=== PATIENT | female | born 1935 | race Caucasian/White ===

== ENCOUNTER 2016-12-19 15:33 | Inpatient (IN) ==
--- NOTE | 2016-12-19 15:59 | Emergency Department Note ---
Disposition Clinical Impression: Arterial occlusion, Afib Disposition: Admitted As Inpatient Condition: Fair General Adult HPI - General Chief complaint: ED Extremity Problem,Nontraumatic Stated complaint: right leg pain Time Seen by Provider: 12/19/16 15:55 Source: patient, family Limitations: no limitations - History of Present Illness Pain Scale: 10 - Related Data Home Medications Medication Instructions Recorded Confirmed Donepezil [Aricept] 10 mg PO HS 05/22/15 09/27/15 Metoprolol Tartrate [Lopressor] 100 mg PO QAM 05/22/15 09/27/15 Namenda 1 tab PO HS 05/22/15 09/27/15 Ranitidine HCl [Zantac] 150 mg PO QAM 05/22/15 09/27/15 Simvastatin [Zocor] 80 mg PO HS 05/22/15 09/27/15 amLODIPine [Norvasc] 10 mg PO DAILY 05/22/15 09/27/15 Aspirin [Lo-Dose Aspirin EC] 81 mg PO 09/27/15 Megestrol Acetate [Megace] 40 mg PO DAILY 09/27/15 09/27/15 Allergies Allergy/AdvReac Type Severity Reaction Status Date / Time No Known Allergies Allergy Verified 09/27/15 11:51 Past Medical History - Past Medical History Medical history: Reports: arthritis, atrial fibrillation, dementia, diabetes, GERD, hyperlipidemia, hypertension, osteoporosis, valvular heart disease, other Surgical history: Reports: carotid endarterectomy, other Psychiatric history: Reports: no psych history MANAGER CONFIGURATION history: Reports: no MANAGER CONFIGURATION history - Social History Smoking Status: Former smoker Smokeless Tobacco Status: No Alcohol use: Reports: none Drug use: Reports: none Physical Exam - General Limitations: no limitations General appearance: alert, in no apparent distress Course Vital Signs Temperature 97.4 F L 12/19/16 15:40 Pulse Rate 78 12/19/16 15:40 Respiratory Rate 16 12/19/16 15:40 Blood Pressure 139/89 12/19/16 15:40 O2 Sat by Pulse Oximetry 0 12/19/16 15:40 Temperature 97.4 F L 12/19/16 15:40 Pulse Rate 99 12/19/16 21:14 Respiratory Rate 18 12/19/16 21:14 Blood Pressure 160/82 12/19/16 21:14 O2 Sat by Pulse Oximetry 98 12/19/16 21:14 Oxygen Delivery Oxygen Delivery Room Air Medical Decision Making - Lab Data Result diagrams: 12/19/16 20:00 12/19/16 18:49 Lab Results 12/19/16 12/19/16 12/19/16 Range/Units 18:49 18:49 18:49 WBC 7.2 (4.3-11.1) K/mcL RBC 4.42 (3.82-4.97) M/mcL Hgb 12.7 (11.5-15.4) g/dL Hct 39.5 (35.3-44.9) % MCV 89.4 (83.0-100.0) fL MCH 28.7 (28.0-33.3) pg MCHC 32.2 (31.6-35.5) g/dL RDW 14.9 H (11.5-14.5) % Plt Count 145 (140-400) K/mcL MPV 11.4 (9.4-12.4) fL Immature Gran % (0-4) % Seg Neutrophils % % Lymphocytes % % Monocytes % % Eosinophils % % Basophils % % Neutrophils # (1.6-8.9) K/mcL Lymphocytes # (0.6-4.6) K/mcL Monocytes # (0.0-1.3) K/mcL Eosinophils # (0.0-0.6) K/mcL Basophils # (0.0-0.2) K/mcL Immature Plt Fraction 7.2 H (1.1-6.1) % PT 12.4 H (9.4-12.1) Seconds INR 1.1 APTT 27.1 (26.0-36.0) Seconds Sodium 138 (136-145) mEq/L Potassium 5.7 H (3.5-4.5) mEq/L Chloride 108 (98-109) mEq/L Carbon Dioxide 20 (19-29) mEq/L BUN 44 H (7-20) mg/dL Creatinine 1.17 H (0.57-1.11) mg/dL Est GFR ( Amer) 54 L (> 60) Est GFR (Non-Af Amer) 44 L (> 60) BUN/Creatinine Ratio 38 H (6-26) Glucose 111 H (70-99) mg/dL Calculated Osmolality 298 (280-300) Calcium 10.1 (8.6-10.8) mg/dL 12/19/16 12/19/16 Range/Units 20:00 20:00 WBC 7.5 (4.3-11.1) K/mcL RBC 4.39 (3.82-4.97) M/mcL Hgb 12.4 (11.5-15.4) g/dL Hct 39.3 (35.3-44.9) % MCV 89.5 (83.0-100.0) fL MCH 28.2 (28.0-33.3) pg MCHC 31.6 (31.6-35.5) g/dL RDW 15.0 H (11.5-14.5) % Plt Count 142 (140-400) K/mcL MPV 11.9 (9.4-12.4) fL Immature Gran % 0.3 (0-4) % Seg Neutrophils % 78.8 % Lymphocytes % 13.9 % Monocytes % 6.0 % Eosinophils % 0.5 % Basophils % 0.5 % Neutrophils # 5.9 (1.6-8.9) K/mcL Lymphocytes # 1.1 (0.6-4.6) K/mcL Monocytes # 0.5 (0.0-1.3) K/mcL Eosinophils # 0.0 (0.0-0.6) K/mcL Basophils # 0.0 (0.0-0.2) K/mcL Immature Plt Fraction 7.6 H (1.1-6.1) % PT 12.5 H (9.4-12.1) Seconds INR 1.2 APTT 26.8 (26.0-36.0) Seconds Sodium (136-145) mEq/L Potassium (3.5-4.5) mEq/L Chloride (98-109) mEq/L Carbon Dioxide (19-29) mEq/L BUN (7-20) mg/dL Creatinine (0.57-1.11) mg/dL Est GFR ( Amer) (> 60) Est GFR (Non-Af Amer) (> 60) BUN/Creatinine Ratio (6-26) Glucose (70-99) mg/dL Calculated Osmolality (280-300) Calcium (8.6-10.8) mg/dL Critical Care Time Critical Care Time: Yes Total Critical Care Time: 30 Attestation: Right lower extremity pain requiring ankle brachial index, vascular surgery consult, IV heparin Attestation Statement - Attestation Attestation: I examined this patient and my medical decision-making was reviewed with the Resident Physician. I agree with the documented findings, disposition and treatment plan as described except to the extent set forth below. [id number] time provided Atraumatic right lower extremity pain extending from the knee distally. Patient exquisitely tender with palpation of her calf, especially over prominent varicose veins. No asymmetric swelling identified. The right lower extremity is cooler to the touch than the unaffected extremity. No systemic symptoms. 18:27: Right lower extremity arterial waveform unable to be identified. The patient did not tolerate the procedure well due to pain. We cannot calculate an CALLY. We contacted the vascular surgeon power generation technician. We will discuss with him the need for anticoagulation given her previous GI bleed while taking Xarelto
--- NOTE | 2016-12-19 16:05 | Emergency Department Note ---
Disposition Clinical Impression: Arterial occlusion Afib Qualifiers: Atrial fibrillation type: chronic Qualified Code(s): I48.2 - Chronic atrial fibrillation Disposition: Admitted As Inpatient Condition: Fair Referrals: Cheryl Adorno MD [Primary Care Provider] - Forms: ED Satisfaction Letter Time of Disposition: 19:59 General Adult HPI - General Chief complaint: ED Extremity Problem,Nontraumatic Stated complaint: right leg pain Time Seen by Provider: 12/19/16 15:55 Source: patient, family Mode of arrival: ambulatory Limitations: no limitations Nursing Notes Reviewed: Yes Vital Signs Reviewed: Yes - History of Present Illness HPI Narrative: 81-year-old female with significant past medical history of dementia and varicose veins presenting to the emergency department with right lower extremity pain. According to daughter in the room this started approximately 3 days ago. It has acutely gotten worse. Patient has severe pain on the posterior calf. Patient states possible history of A. fib and previously on Xarelto but had a GI bleed and therefore no longer on anticoagulation. Patient denies any chest pain, shortness of breath. Patient is a poor historian and daughter in the room so she is unsure of all the patient's medical issues. Patient denies any recent long trips but does state she sits around a lot. Patient denies being on any hormonal medications. Patient denies any history of DVT. Pain Scale: 10 - Related Data Home Medications Medication Instructions Recorded Confirmed Donepezil [Aricept] 10 mg PO HS 05/22/15 09/27/15 Metoprolol Tartrate [Lopressor] 100 mg PO QAM 05/22/15 09/27/15 Namenda 1 tab PO HS 05/22/15 09/27/15 Ranitidine HCl [Zantac] 150 mg PO QAM 05/22/15 09/27/15 Simvastatin [Zocor] 80 mg PO HS 05/22/15 09/27/15 amLODIPine [Norvasc] 10 mg PO DAILY 05/22/15 09/27/15 Aspirin [Lo-Dose Aspirin EC] 81 mg PO 09/27/15 Megestrol Acetate [Megace] 40 mg PO DAILY 09/27/15 09/27/15 Allergies Allergy/AdvReac Type Severity Reaction Status Date / Time No Known Allergies Allergy Verified 09/27/15 11:51 All systems ED: reviewed and negative except as stated. Constitutional: Denies: fever, chills Eyes: Reports: as per HPI ENT ED: Reports: as per HPI Cardiovascular: Denies: chest pain, palpitations, dyspnea on exertion Respiratory: Denies: cough, dyspnea, wheezes Gastrointestinal: Denies: abdominal pain, nausea, vomiting Genitourinary: Reports: as per HPI Musculoskeletal: Reports: as per HPI Integumentary: Denies: rash, abrasion Neurological: Denies: numbness, paresthesias Psychiatric: Reports: as per HPI Endocrine: Reports: as per HPI Hematological/Lymphatic: Reports: as per HPI Allergic/Immunologic: Reports: as per HPI Past Medical History - Past Medical History Attestation: Yes The following information was validated with the patient. Medical history: Reports: arthritis, atrial fibrillation, dementia, diabetes, GERD, hyperlipidemia, hypertension, osteoporosis, valvular heart disease, other Surgical history: Reports: carotid endarterectomy, other Psychiatric history: Reports: no psych history DIRECTOR OF AVIATION history: Reports: no DIRECTOR OF AVIATION history - Social History Smoking Status: Former smoker Smokeless Tobacco Status: No Alcohol use: Reports: none Drug use: Reports: none Physical Exam - General Limitations: no limitations General appearance: alert, in no apparent distress - Head Head exam: atraumatic, normocephalic, normal inspection - Eye Eye exam: Present: normal appearance. Absent: scleral icterus, conjunctival injection - Chest Chest inspection: Present: normal inspection, symmetric chest wall rise. Absent : tenderness, rash - Respiratory Respiratory exam: Present: normal lung sounds bilaterally. Absent: respiratory distress, wheezes - Cardiovascular Cardiovascular exam: Present: regular rate, normal rhythm, normal heart sounds - Abdominal Exam Abdominal exam: Present: soft, Non-Tender. Absent: distention, guarding, rebound - Extremities Exam Extremities exam: Present: other (Right lower extremity from ankle to foot decreased capillary refill greater than 3 seconds and cold. Distal pulses 1+. Left lower extremity distal pulses 2+. Patient has a palpable cord in the right posterior calf area. Pain upon palpation of the right posterior calf. Muscle strength 5 out of 5. Sensation intact bilateral lower extremities.) - Neurological Exam Neurological exam: Present: alert, oriented X3 - Psychiatric Psychiatric exam: Present: normal affect, normal mood - Skin Skin exam: Present: intact Course Course Narrative: 81-year-old female presenting to emergency Department with right lower extremity pain in the posterior calf and cold decreased pulses on the right lower extremity. We will obtain a Doppler study of the right lower extremity and an ABIs of the lower extremities. Disposition pending results. He also obtained EKG due to the patient's history of A. fib. Oriented 3 in the room and stable vital signs at this time. Patient and family agree with this plan. Daughter is at bedside. - Reevaluation(s) Reevaluation #1: Patient's Doppler within normal limits. CALLY showed no pulses in the DP or PT. Mixer Foam Rubber states patient had significant pain during the examination and that this could possibly cause difficulty in results. I spoke with the vascular surgeon paint grinder stone mill Dr. Winters who agrees to come to the emergency department and evaluate the patient. He would like us to start a heparin drip at this time. I spoke with the patient about this and they agree with the plan along with daughter at bedside. Patient denies any active melena or hematochezia. Denies any hematuria or any other signs of active bleeding at this time. We will start heparin and obtain basic lab work for admission and possible surgery. Time: 19:27 Reevaluation #2: Dr. Winters has come to the emergency department and evaluate the patient. He would like her to be admitted to his service for surgery and possible limb removal. Patient's alert and oriented 3 in the room with daughter at bedside. Vital signs are stable at this time. Time: 19:59 Vital Signs Temperature 97.4 F L 12/19/16 15:40 Pulse Rate 78 12/19/16 15:40 Respiratory Rate 16 12/19/16 15:40 Blood Pressure 139/89 12/19/16 15:40 O2 Sat by Pulse Oximetry 0 12/19/16 15:40 Temperature 97.4 F L 12/19/16 15:40 Pulse Rate 78 12/19/16 15:40 Respiratory Rate 16 12/19/16 15:40 Blood Pressure 139/89 12/19/16 15:40 O2 Sat by Pulse Oximetry 0 12/19/16 15:40 Oxygen Delivery Oxygen Delivery Room Air Medical Decision Making - Lab Data Result diagrams: 12/19/16 18:49 12/19/16 18:49 Lab Results 12/19/16 12/19/16 12/19/16 Range/Units 18:49 18:49 18:49 WBC 7.2 (4.3-11.1) K/mcL RBC 4.42 (3.82-4.97) M/mcL Hgb 12.7 (11.5-15.4) g/dL Hct 39.5 (35.3-44.9) % MCV 89.4 (83.0-100.0) fL MCH 28.7 (28.0-33.3) pg MCHC 32.2 (31.6-35.5) g/dL RDW 14.9 H (11.5-14.5) % Plt Count 145 (140-400) K/mcL MPV 11.4 (9.4-12.4) fL Immature Plt Fraction 7.2 H (1.1-6.1) % PT 12.4 H (9.4-12.1) Seconds INR 1.1 APTT 27.1 (26.0-36.0) Seconds Sodium 138 (136-145) mEq/L Potassium 5.7 H (3.5-4.5) mEq/L Chloride 108 (98-109) mEq/L Carbon Dioxide 20 (19-29) mEq/L BUN 44 H (7-20) mg/dL Creatinine 1.17 H (0.57-1.11) mg/dL Est GFR ( Amer) 54 L (> 60) Est GFR (Non-Af Amer) 44 L (> 60) BUN/Creatinine Ratio 38 H (6-26) Glucose 111 H (70-99) mg/dL Calculated Osmolality 298 (280-300) Calcium 10.1 (8.6-10.8) mg/dL - EKG Data EKG #1 EKG attestation: Yes I reviewed and interpreted this EKG. EKG results narrative: Atrial fibrillation rate of 71. Left axis deviation. QRS 98, QTC 392. No signs of ST segment elevation or ischemia. When compared to previous EKG completed on 05/22/2015 no significant changes
[2016-12-19] MEDS ORDERED: *HR* Heparin 5,000 UNIT/ML VIAL IVP PRN (18:33)
[2016-12-19] MEDS ORDERED: Heparin 25,000 UNIT/500 ML D5W 25,000 UNIT/500 ML MLS IVC SCH (18:45)
[2016-12-19 18:56] LABS: Hematocrit 39.5 % (35.3-44.9); Hemoglobin 12.7 g/dL (11.5-15.4); Immature Platelets 7.2 % (1.1-6.1); Mean Corpuscular HGB Conc 32.2 g/dL (31.6-35.5); Mean Corpuscular Hemoglobin 28.7 pg (28.0-33.3); Mean Corpuscular Volume 89.4 fL (83.0-100.0); Mean Platelet Volume 11.4 fL (9.4-12.4); Red Blood Count 4.42 M/mcL (3.82-4.97); Red Cell Distribution Width 14.9 % (11.5-14.5)
[2016-12-19 19:07] LABS: Calcium 10.1 mg/dL (8.6-10.8); INR 1.1; Potassium 5.7 mEq/L (3.5-4.5); Prothrombin Time 12.4 Seconds (9.4-12.1)
[2016-12-19 19:09] LABS: Activated Partial Thrombo Time 27.1 Seconds (26.0-36.0)
[2016-12-19 20:15] LABS: Basophils % 0.5 %; Eosinophils % 0.5 %; Hematocrit 39.3 % (35.3-44.9); Hemoglobin 12.4 g/dL (11.5-15.4); Immature Granulocytes % 0.3 % (0-4); Immature Platelets 7.6 % (1.1-6.1); Lymphocytes # 1.1 K/mcL (0.6-4.6); Lymphocytes % 13.9 %; Mean Corpuscular HGB Conc 31.6 g/dL (31.6-35.5); Mean Corpuscular Hemoglobin 28.2 pg (28.0-33.3); Mean Corpuscular Volume 89.5 fL (83.0-100.0); Mean Platelet Volume 11.9 fL (9.4-12.4); Monocytes # 0.5 K/mcL (0.0-1.3); Neutrophils # 5.9 K/mcL (1.6-8.9); Platelet Count 142 K/mcL (140-400); Red Blood Count 4.39 M/mcL (3.82-4.97); Segmented Neutrophils % 78.8 %
[2016-12-19 20:20] LABS: INR 1.2; Prothrombin Time 12.5 Seconds (9.4-12.1)
[2016-12-19 20:36] LABS: Activated Partial Thrombo Time 26.8 Seconds (26.0-36.0)
--- NOTE | 2016-12-19 20:49 | Anesthesia Evaluation PreOp ---
Date of Encounter: 12/19/16 Time of Encounter: 20:47 - Past History Planned Operation: Right LE embolectomy Cardiac History: Denies any Significant Hx (arthritis, atrial fibrillation, dementia, diabetes, GERD, hyperlipidemia, hypertension, osteoporosis, valvular heart disease, other), HTN, Hyperlipidemia, Arrhythmia (Afib), Other (Valvular heart dx) Pulmonary History: Former smoker YEAST FERMENTATION ATTENDANT History: Denies Any Significant HX Other Medical History: Denies Any Significant HX, Diabetes Type II, GERD, Other (Dementia, RA, osteoporosis) Anesthesia History: No Prior Anesthetic Complications, Past Anesthesia (CEA) : No Alcohol Use: none Drug use: none Medications and Allergies Donepezil [Aricept] 10 mg PO HS 05/22/15 [History] Metoprolol Tartrate [Lopressor] 100 mg PO QAM 05/22/15 [History] Namenda 1 tab PO HS 05/22/15 [History] Ranitidine HCl [Zantac] 150 mg PO QAM 05/22/15 [History] Simvastatin [Zocor] 80 mg PO HS 05/22/15 [History] amLODIPine [Norvasc] 10 mg PO DAILY 05/22/15 [History] Aspirin [Lo-Dose Aspirin EC] 81 mg PO 09/27/15 [History] Megestrol Acetate [Megace] 40 mg PO DAILY 09/27/15 [History] 3 Allergy/AdvReac Type Severity Reaction Status Date / Time No Known Allergies Allergy Verified 09/27/15 11:51 - Meds/Allergy Pre-op Review Medications Reviewed: Yes Allergies Reviewed: Yes Beta Blockers on Current Med List: Yes If Beta Blockers taken, Date/Time (Last Dose taken): 11:00 12/19/2016 Anesthesia Results - Labs 12/19/16 20:00 12/19/16 18:49 - Imaging EKG: image reviewed (ATRIAL FIBRILLATION WITH SLOW VENTRICULAR RESPONSE) Anesthesia Exam O2 Sat Height 1.6 m Weight 68.039 kg O2 Sat by Pulse Oximetry 99 O2 Sat by Pulse Oximetry 98 O2 Sat by Pulse Oximetry 0 Vital Signs Temp Pulse Resp BP Pulse Ox 97.4 F L 78 16 139/89 0 12/19/16 15:40 12/19/16 15:40 12/19/16 15:40 12/19/16 15:40 12/19/16 15:40 Height: 5'3'' Weight: 150# NPO (# of Hours): > 8 hrs Pain Scale: 0 - HEENT Pupil (Motor): Pupils equal, EOMI Mallampati: III Teeth: Edentulous Oral Opening: Greater than 3 - YEAST FERMENTATION ATTENDANT LOC: Oriented YEAST FERMENTATION ATTENDANT Motor: Normal RUE, Normal LUE, Normal RLE, Normal LLE, Normal Face YEAST FERMENTATION ATTENDANT Sensory: Normal: RUE, LUE, RLE, LLE, Face - Cardiac Rhythm: Irregular Murmur: None JVD: No Carotid Bruit: No - Pulmonary Breath Sounds: bilateral Clear Respiratory Effort: Symmetrical Anesthesia Assess/Plan ASA Score: 3 Modified [place] Scale for Level of Consciousness: Cooperative, oriented, and tranquil Anesthetic Plan: General Autologous Blood: Yes Monitoring Plan: Standard Monitors Recovery Plan: PACU
[2016-12-19] MEDS ORDERED: Heparin 1,000 UNITS/500 mL NS 500 ML ONE (20:52)
[2016-12-19] MEDS ORDERED: Lidocaine 1% 20 ML MDV ONE (20:52)
[2016-12-19] MEDS ORDERED: *HR* FentaNYL (PF) 100 MCG/2 ML VIAL ONE (21:06)
[2016-12-19] MEDS ORDERED: *HR* Propofol 200 MG/20 ML VIAL IVP ONE (21:08)
[2016-12-19] MEDS ORDERED: Lidocaine -MPF 2% 2 ML VIAL ONE (21:09)
[2016-12-19] MEDS ORDERED: Dexamethasone 4 MG/ML VIAL ONE (21:09)
[2016-12-19] MEDS ORDERED: *HR* Rocuronium Bromide 50 MG/5 ML VIAL ONE (21:09)
[2016-12-19] MEDS ORDERED: Ondansetron 4 MG/2 ML VIAL ONE (21:09)
[2016-12-19] MEDS ORDERED: *HR* Succinylcholine 200 MG/10 ML VIAL IVP ONE (21:09)
--- NOTE | 2016-12-19 21:11 | Vascular/Endovascular H&P ---
Date of Encounter: 12/19/16 Time of Encounter: 20:00 Assessment and Plan (1) Ischemia of right lower extremity Current Visit: Yes Status: Acute The patient has evidence of acute right lower extremity ischemia likely secondary to an embolic event arising from her atrial fibrilllation. The patient has a diminshed pulse exam, her ABIs are critical and her right lower extremity exam reveals decreased motor and sensory function due to her ischemia of 3 days duration. Emergent revascularization is recommended to reduce her risk of limb loss. Given her delayed presentation, limb loss is possible. This was discussed with her and her daughter. They expressed understanding and wish to proceed with surgery. The risks, benefits and alternatives were discussed and all questions were answered. (2) Essential hypertension Current Visit: Yes Status: Chronic (3) Mixed hyperlipidemia Current Visit: Yes Status: Chronic (4) DM type 2 (diabetes mellitus, type 2) Current Visit: Yes Status: Chronic Qualifiers: Diabetes mellitus complication status: with unspecified complications Diabetes mellitus continuous churn buttermaker insulin use: without snf use Qualified Code( s): E11.8 - Type 2 diabetes mellitus with unspecified complications (5) Afib Current Visit: Yes Status: Chronic Qualifiers: Atrial fibrillation type: chronic Qualified Code(s): I48.2 - Chronic atrial fibrillation (6) Chronic kidney disease, stage III (moderate) Current Visit: Yes Status: Chronic History of Present Illness Chief complaint: Right foot pain HPI: Ms. Pantoja is a 81 year old female with a history of atrial fibrillation. She was previously treated with Xarelto, but due to presistent anemia, her Xarelto has been stopped. The patient describes a 3 day history of pain and parasthesias of the right foot. She has presented to [facility] ER today for further evaluation. As part of her evaluation she underwent an ankle brachial index. Her right CALLY was consistent with critical limb ischemia. Vascular Surgery was consulted for further evaluation. The patient is alert and denies chest pain or shortness of breath. Past Med Surg Social Fam HX - Past Medical History Medical history: arthritis, atrial fibrillation, dementia, diabetes, GERD, hyperlipidemia, hypertension, osteoporosis, valvular heart disease, other Psychiatric history: no psych history - Past Surgical History Surgical History: carotid endarterectomy, other - Social History Smoking Status: Former smoker Smokeless Tobacco Status: No Alcohol use: none Drug use: none Medications and Allergies Donepezil [Aricept] 10 mg PO HS 05/22/15 [History] Metoprolol Tartrate [Lopressor] 100 mg PO HS 05/22/15 [History] Ranitidine HCl [Zantac] 150 mg PO QAM 05/22/15 [History] Simvastatin [Zocor] 80 mg PO HS 05/22/15 [History] Aspirin [Lo-Dose Aspirin EC] 81 mg PO HS 09/27/15 [History] Furosemide [Lasix] 40 mg PO DAILY 12/20/16 [History] Lisinopril [Zestril] 20 mg PO DAILY 12/20/16 [History] Megestrol Acetate [Megace] 400 mg PO DAILY 12/20/16 [History] Memantine [Namenda] 10 mg PO BID 12/20/16 [History] Raloxifene [Evista] 60 mg PO HS 12/20/16 [History] 3 Allergy/AdvReac Type Severity Reaction Status Date / Time No Known Allergies Allergy Verified 09/27/15 11:51 All Systems Review: A 10-system review of systems was performed and is negative for pertinent findings except as documented above in the HPI. - Constitutional Constitutional: no chills, no fever(s) - Cardiovascular Cardiovascular: no chest pain at rest, no chest pain with exertion, no dyspnea at rest, no dyspnea on exertion Exam Vital Signs, Last 4 Hours Pulse Resp BP Pulse Ox 12/19/16 20:31 90 16 146/82 99 General: Present: Conversant, No Apparent Distress HEENT: Present: Atraumatic, Normocephaly, Trachea midline, Pupils equal Neck: Absent: JVD, Lymphadenopathy, Left Carotid bruit, Right Carotid bruit Cardiac: Present: Normal S1 and S2, Irregular Rhythm Lungs: Present: Normal Breath Sounds, No Wheeze, Rales, Rhonchi Neuro: Present: Alert and responsive, Other (right foot decreased motor function and decreased sensation to light touch) Abdomen: Present: Soft, Non-tender Vascular: Present: Normal capillary refill (left foot), Capillary refill delayed (right forefoot), Pulse, absent (right foot), Pulse, diminished (left foot), Pulse, normal (bilateral femoral pulses normal), Cyanosis (right forefoot mottling present). Absent: Edema Skin: Present: No rashes noted on visualized skin Musculoskeletal: Present: No Chest Wall Tenderness Results 12/20/16 03:52 12/20/16 03:52 - Imaging / Other Tests Non Invasive Vascular Testing: report reviewed, image reviewed
[2016-12-19] MEDS ORDERED: Albuterol 2.5 MG/3 ML NEBULIZER IH ONE (21:40)
[2016-12-19] MEDS ORDERED: *HR* Labetalol 20 MG/4 ML SYRINGE IVP PRN (21:40)
[2016-12-19] MEDS ORDERED: Ondansetron 4 MG/2 ML VIAL IVP ONE (21:40)
[2016-12-19] MEDS ORDERED: *HR* Promethazine 25 MG/ML VIAL IVP PRN (21:40)
[2016-12-19] MEDS ORDERED: *HR* HYDROmorphone (PF) 1 MG/ML SYRINGE IVP PRN (21:40)
--- NOTE | 2016-12-19 21:42 | Anesthesia Evaluation Post Op ---
Date of Encounter: 12/20/16 Time of Encounter: 00:40 - Vital Signs Vital Signs: Vital Signs/O2 Sat, Most Current Temp Pulse Resp BP Pulse Ox 98.9 F 98 20 128/87 96 12/20/16 00:39 12/20/16 00:39 12/20/16 00:39 12/20/16 00:39 12/20/16 00:39 - Lungs Lungs: Clear Ascult./Percussion - Cardiovascular Irregular Rate, Baseline Rhythm - Mental Status Mental Status: Alert & Oriented, Answers Appropriately - Pain Pain Scale: 0 Pain Scale used: Numeric (1 - 10) - Nausea Vomiting Nausea Vomiting: Not Present - Hydration Hydration: NPO, Mac catheter - Discharge PostOp Status: Transfer Patient to floor
[2016-12-19] MEDS ORDERED: Vancomycin 1,000 MG VIAL ONE (22:04)
[2016-12-19] MEDS ORDERED: ceFAZolin 2,000 MG in Water for inj. (sterile) 20 ML IVP ONE (22:22)
[2016-12-19] MEDS ORDERED: Vancomycin 1,000 MG in Sodium Chloride IRRigation 250 ML IR ONE (22:23)
[2016-12-19] MEDS ORDERED: *HR* Heparin 5,000 UNIT/ML VIAL ONE (22:53)
[2016-12-20] MEDS ORDERED: Naloxone 0.4 MG/ML INJ IVP PRN (00:59)
[2016-12-20] MEDS ORDERED: *HR* Morphine 2 MG/ML SYRINGE IVP PRN (00:59)
[2016-12-20] MEDS ORDERED: *HR* Labetalol 20 MG/4 ML SYRINGE IVP PRN (00:59)
[2016-12-20] MEDS ORDERED: Acetaminophen 325 MG TABLET PO PRN (00:59)
[2016-12-20] MEDS ORDERED: Ondansetron 4 MG/2 ML VIAL IVP PRN (00:59)
[2016-12-20] MEDS: *HR* OxyCODONE Immed Rel 5 MG TABLET PO PRN ×2 (01:36→15:12)
[2016-12-20] MEDS: 0.9 % Sodium Chloride 1,000 ML IVC SCH ×2 (01:38→18:28)
[2016-12-20] MEDS: *HR* Metoprolol 5 MG/5 ML VIAL IVP SCH ×4 (01:38→18:29)
--- NOTE | 2016-12-20 03:08 | Operative Note ---
Date of procedure: 12/20/16 Pre-op diagnosis: Acute right lower extremity ischemia Post-op diagnosis: same Procedure: 1. Right lower extremity embolectomy with 4 polish tadeo embolectomy catheter. 2. Exploration of right tibial vessels and 2 compartment fasciotomy. Complications: None Anesthesia: GETA Surgeon: Kaz Winters Estimated blood loss (cc): 100 Specimen: Right lower extremity embolus Condition: stable Disposition: PACU Procedure in Detail: Indications: The patient is an 81 year old female with a history of chronic atrial fibrillation, hypertension and hyperlipidemia who was not anticoagulated. She presented to the ER with acute limb ischemia. She was taken to the OR emergently for revascularization to reduce her risk of limb loss. Procedure: The patient was identified in the preoperative area. The risks, benefits and alternatives were discussed and all questions were answered. The patient was taken to the operating room and placed in the supine position on the operating room table. After the induction of general endotracheal anesthesia, the patient was cleaned and draped in the normal sterile fashion. An oblique incision was made over the right femoral vessels sharply. Hemostasis was obtained with electrocautery. Through a process of blunt, sharp and electrocautery dissection, the distal external iliac, deep and superficial femoral arteries were dissected and surrounded with vessel loops. The patient received a bolus of heparin and the vessels were occluded with the vessel loops. A transverse arteriotomy was made low on the common femoral artery. No flow was noted on releas of the proximal loop. A 4 polish tadeo catheter was passed into the aorta and inflated. It was withdrawn and significant acute thrombus and chronic embolic material was retrieved. This was sent to pathology. Brisk pulsatile flow was noted at this time. Additional passes of the catheter resulted in no additional thrombus or embolus proximally. A 4 polish tadeo catheter was passed distally and thrombus was retrieved from the deep femoral artery. Multiple additional passes revealed no additional thrombus from the deep femoral artery. The right superficial femoral artery was noted to be chronically occluded and the tadeo catheter would not advance more thean 1cm into the vessel. The vessels were flushed with heparin. The arteriotomy was reapproximated with 6-0 Prolene. Flow was restored. A popliteal signal was identified with a doppler. However, no tibial signals could be identified. A longitudinal incision was then made along the medial right leg sharply. Hemostasis was obtained via electrocautery. Through a process of blunt, sharp and electrocautery dissection, the popliteal, anterior tibial and tibioperoneal trunk arteries were dissected. A doppler revealed biphasic signals in the tibial vessels. A fasciotomy was performed on the superfical and deep posterior compartments. The wounds wer irrigated with sterile saline. Signals wer not identified at the ankle posterior tibial and dorsalis pedis arteries below the ankle. Hemostasis was obtained with electrocautery. The wounds were reapproximated with 2-0 and 3-0 vicryl. Skin was reapproximated with 3-0 Monocryl. Sterile dressings were applied. The patient was extubated and taken to the recover room in stable condition.
[2016-12-20] MEDS: CeFAZolin Premix DUPLEX 2,000 MG/50 ML BAG IVPB SCH ×2 (03:25→12:14)
[2016-12-20 04:34] LABS: Basophils % 0.1 %; Eosinophils % 0.1 %; Hematocrit 37.5 % (35.3-44.9); Hemoglobin 11.7 g/dL (11.5-15.4); Immature Granulocytes % 0.5 % (0-4); Lymphocytes # 0.5 K/mcL (0.6-4.6); Lymphocytes % 6.5 %; Mean Corpuscular HGB Conc 31.2 g/dL (31.6-35.5); Mean Corpuscular Hemoglobin 28.1 pg (28.0-33.3); Mean Corpuscular Volume 90.1 fL (83.0-100.0); Mean Platelet Volume 12.1 fL (9.4-12.4); Monocytes # 0.2 K/mcL (0.0-1.3); Monocytes % 2.6 %; Neutrophils # 7.5 K/mcL (1.6-8.9); Platelet Count 144 K/mcL (140-400); Red Blood Count 4.16 M/mcL (3.82-4.97); Red Cell Distribution Width 15.2 % (11.5-14.5); Segmented Neutrophils % 90.2 %
[2016-12-20 04:52] LABS: Calcium 9.1 mg/dL (8.6-10.8); Potassium 5.1 mEq/L (3.5-4.5)
[2016-12-20] MEDS: Furosemide 40 MG TABLET PO SCH (09:09)
[2016-12-20] MEDS: Lisinopril 20 MG TABLET PO SCH (09:09)
[2016-12-20] MEDS: Famotidine 20 MG TABLET PO SCH (09:09)
[2016-12-20] MEDS: *HR* Enoxaparin 80 MG/0.8 ML SYRINGE SQ SCH (18:29)
[2016-12-20] MEDS ORDERED: Aspirin Enteric Coated 81 MG Tablet PO SCH (21:00)
[2016-12-20] MEDS: *HR* HYDROcodone/Acet 5/325 mg TABLET PO PRN (21:31)
--- NOTE | 2016-12-20 23:14 | Vascular/[facility] Progress Note ---
Date of Encounter: 12/20/16 Time of Encounter: 13:30 - Assessment and plan (1) Ischemia of right lower extremity Status: Acute The patient presented with 3 days of acute right lower extremity ischemia lsecondary to an embolic event arising from her atrial fibrillation. She underwent a right lower extremity embolectomy and a right lower extremity fasciotomy. Her foot is warm and her symptoms have resolved. She will continue Lovenox today. Her echo reveals no evidence of a mural thrombus. (2) Essential hypertension Status: Chronic (3) Mixed hyperlipidemia Status: Chronic (4) DM type 2 (diabetes mellitus, type 2) Status: Chronic Qualifiers: Diabetes mellitus complication status: with circulatory complication Diabetes mellitus complication detail: with peripheral angiopathy without gangrene Diabetes mellitus chcf insulin use: without long term care social worker use Qualified Code(s): E11.51 - Type 2 diabetes mellitus with diabetic peripheral angiopathy without gangrene (5) Afib Status: Chronic Qualifiers: Atrial fibrillation type: chronic Qualified Code(s): I48.2 - Chronic atrial fibrillation (6) Chronic kidney disease, stage III (moderate) Status: Chronic Continue intravenous hydration. - Subjective Interval history: The patient reports that her right leg is feeling much better today. She reports incisional pain. She denies any palpitations. She denies chest pain or shortness of breath. Vital Signs, Last 4 Hours Temp Pulse Resp BP Pulse Ox 12/20/16 20:11 97.6 F 98 16 97/49 97 - Physical Examination General: Present: Conversant HEENT: Present: Pupils equal Neck: Present: JVD Cardiac: Present: Irregular Rhythm Lungs: Present: Normal Breath Sounds Neuro: Present: Alert and responsive, Motor nerves grossly intact, Sensory nerves grossly intact Vascular: Present: Normal capillary refill, Color/Temperature (feet warm), Surgical incisions (incisions clean and dry without erythema or drainage). Absent: Cyanosis, Edema Abdomen: Present: Soft - VTE Reasons for not Prescribing Prophylaxis: Not indicated-Anticoagulated or INR therapeutic Documentation of Mechanical Device: Intermittent pneumatic compression device Results 12/20/16 03:52 12/20/16 03:52 Lab Results, Last 24 hours 12/20/16 12/20/16 03:52 03:52 WBC 8.4 Hgb 11.7 Hct 37.5 Plt Count 144 Sodium 139 Potassium 5.1 H Chloride 110 H Carbon Dioxide 18 L BUN 44 H Creatinine 1.22 H Glucose 126 H Calcium 9.1 - Imaging / Other Tests Echo: report reviewed (LVEF 60-65%. Indeterminate diastolic function. Normal right ventricular structure and function. Severe bi-atrial enlargement. Mild- moderate aortic stenosis. Mild-moderate aortic regurgitation. Mild mitral regurgitation. Probably severe, eccentric tricuspid regurgitation. Mild pulmonic regurgitation. Moderate pulmonary hypertension. No evidence for intra- cardiac thrombus on this study.) Consult Discharge Plan - Plan Instructions: Hydrocodone/Acetaminophen (By mouth), Rivaroxaban (By mouth), Peripheral Vascular Disorders (DC) Additional Instructions: May remove bandages and shower on 12/22/16. Dry gauze to wounds daily for 7 days. No tub baths or swimming until 01/15/17. Call Dr. Winters at [phone] with questions or concerns. Office will call with follow lab orders. Referrals: Dawna Hampton CNP [Advanced Practice Nurse] - 12/28/16 4:00 pm Kaz Winters MD [Partnered Physician] - 01/10/17 1:00 pm (2-3 weeks) Prescriptions: HYDROcodone/Acet 5/325 mg [[place] 5-325 mg] 1 tab PO Q6H PRN #25 tablet PRN Reason: POSTOPERATIVE PAIN Rivaroxaban [Xarelto] 10 mg PO DAILY #30 tablet
[2016-12-21] MEDS: *HR* Metoprolol 5 MG/5 ML VIAL IVP SCH ×2 (00:16→06:33)
[2016-12-21] MEDS: *HR* HYDROcodone/Acet 5/325 mg TABLET PO PRN (02:00)
[2016-12-21] MEDS: *HR* Enoxaparin 80 MG/0.8 ML SYRINGE SQ SCH (06:32)
[2016-12-21 08:08] VITALS: BP 96/60
[2016-12-21] MEDS: Famotidine 20 MG TABLET PO SCH (08:10)
[2016-12-21] MEDS: Furosemide 40 MG TABLET PO SCH (08:10)
[2016-12-21] MEDS: Lisinopril 20 MG TABLET PO SCH (08:10)
--- NOTE | 2016-12-21 08:39 | Discharge Summary ---
Date of Encounter: 12/21/16 Time of Encounter: 09:05 - Discharge Diagnosis (1) Ischemia of right lower extremity Priority: Primary Status: Acute Comments: The patient is postoperative day #1 after left lower extremityembolectomy and fasciotomy. Her wounds are healing and her foot is warm. Pedal signals are present. She will started Xarelto 10mg daily. She will be discharged today. She will have a CBC drawn next week to monitor for recurrent anemia. 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 (5) Afib Priority: Secondary Status: Chronic Qualifiers: Atrial fibrillation type: chronic Qualified Code(s): I48.2 - Chronic atrial fibrillation (6) Chronic kidney disease, stage III (moderate) Priority: Secondary Status: Chronic Code(s): N18.3 - Chronic kidney disease, stage 3 (moderate) - Discharge Medications Prescriptions: HYDROcodone/Acet 5/325 mg [[place] 5-325 mg] 1 tab PO Q6H PRN #25 tablet PRN Reason: POSTOPERATIVE PAIN Rivaroxaban [Xarelto] 10 mg PO DAILY #30 tablet Home Medications: Donepezil [Aricept] 10 mg PO HS 05/22/15 [History] Metoprolol Tartrate [Lopressor] 100 mg PO HS 05/22/15 [History] Ranitidine HCl [Zantac] 150 mg PO QAM 05/22/15 [History] Simvastatin [Zocor] 80 mg PO HS 05/22/15 [History] Furosemide [Lasix] 40 mg PO DAILY 12/20/16 [History] Lisinopril [Zestril] 20 mg PO DAILY 12/20/16 [History] Megestrol Acetate [Megace] 400 mg PO DAILY 12/20/16 [History] Memantine [Namenda] 10 mg PO BID 12/20/16 [History] Raloxifene [Evista] 60 mg PO HS 12/20/16 [History] HYDROcodone/Acet 5/325 mg [[place] 5-325 mg] 1 tab PO Q6H PRN #25 tablet 12/21/16 [Rx] Rivaroxaban [Xarelto] 10 mg PO DAILY #30 tablet 12/21/16 [Rx] Allergies/Adverse Reactions: 3 Allergy/AdvReac Type Severity Reaction Status Date / Time No Known Allergies Allergy Verified 09/27/15 11:51 Procedures/tests Complete & Pending: Procedures Performed prior 72 hours Category Date Time Status EV echocardiogram Routine Y 12/20/16 06:16 Completed Date of admission: 12/19/16 21:18 Primary care physician: Cheryl Adorno Procedure(s) Performed: Left lower extremity embolectomy and left lower extremity fasciotomy. Discharging clinician: Kaz Winters Anticipated date of discharge: 12/21/16 - Patient Status Disposition: Home, Self-Care Condition: Good Functional capacity at discharge: independent ambulation Overall status at discharge: patient is progressing back to baseline - Discharge Instructions Instructions: Hydrocodone/Acetaminophen (By mouth), Rivaroxaban (By mouth), Peripheral Vascular Disorders (DC) Follow Up With: Dawna Hampton CNP [Advanced Practice Nurse] - 12/28/16 4:00 pm Kaz Winters MD [Partnered Physician] - 01/10/17 1:00 pm (2-3 weeks) Additional Instructions: May remove bandages and shower on 12/22/16. Dry gauze to wounds daily for 7 days. No tub baths or swimming until 01/15/17. Call Dr. Winters at [phone] with questions or concerns. Office will call with follow lab orders. - Diet and Activity Activity: increase activity as tolerated Diet: advance to your usual diet - Hospital Course Hospital course: Ms. Pantoja is a 81 year old female with a history of atrial fibrillation and chronic kidney disease who presented to the ER on 12/19/16 with a 3 day history of right lower extremity ischemia. She was admitted and taken to the OR for emergent embolectomy and fasciotomy. She was transferred to the floor after the procedure. She was treated with lovenox and intravenous fluids postoperatively. On 12/30/16, she reported that her leg felt much better after the procedure. On 12/21/16 her foot was viable and her symptoms had resolved. An echocardiogram revealed no residual mural thrombus. She was previously treated with Xarelto 20mg daily, but it was stopped several years ago due to a GI bleed. She was started on Xarelto 10mg daily. Her Aspirin will be held as well. She will be discharged today. She will have a repeat hemoglobin checked next week to monitor for recurrent anemia. She was instructed to seek medical attention if she develops any signs or symptoms of blood loss. - Time Spent with Patient Total time spent providing and/or coordinating discharge services: Exam Vital Signs, Last 4 Hours Temp Pulse Resp BP 12/21/16 08:04 98.1 F 75 14 96/60 General: Present: Conversant HEENT: Present: Pupils equal Cardiac: Present: Irregular Rhythm Lungs: Present: Normal Breath Sounds Neuro: Present: Alert and responsive, No focal deficits noted, Motor nerves grossly intact, Sensory nerves grossly intact Abdomen: Present: Soft Vascular: Present: Normal capillary refill (pedal signals present), Surgical incisions (healing well, no hematoma). Absent: Cyanosis, Edema - VTE Reasons for not Prescribing Prophylaxis: Not indicated-Anticoagulated or INR therapeutic Documentation of Mechanical Device: Intermittent pneumatic compression device
[2016-12-21] MEDS: 0.9 % Sodium Chloride 1,000 ML IVC SCH (09:08)
[2016-12-21] MEDS ORDERED: Metoprolol 100 MG TABLET PO SCH (21:00)
--- NOTE | 2016-12-21 21:43 | Electrocardiograph Report ---
[place] [id number] Test Date: 2016-12-19 Pat Name: Lilly Pantoja Department: 103 Room: 2N07 Gender: F Creative Services Writer: : 1935 Requested By: Aretha Cisneros Order Number: [id number] Reading MD: Chuck Crook MD Measurements Intervals [place] Rate: 71 P: [place]: 0 QRS: -57 QRSD: 98 T: 48 QT: 370 QTc: 392 Interpretive Statements ATRIAL FIBRILLATION MARKED LEFT AXIS DEVIATION Poor R wave progression BASELINE ARTIFACT Electronically Signed On 12-21-2016 21:42:05 EST by Chuck Crook MD
== END 2016-12-21 11:03 | disposition home or self-care (01) | DRG 254 ==
LOC: EMEROO 15:33 → 2NNU 15:33
PROVIDERS: ADMIT Surgery; ATTEND Surgery
PROC: VASEMBO (2016-12-19 21:30)